=== PATIENT | male | born 1980 | race African-American/Black ===

== ENCOUNTER 2020-02-28 10:07 | Emergency (ER) | payer OTHER ==
[2020-02-28 14:12] LABS: BILIRUBIN NEGATIVE (NEGATIVE); BLOOD NEGATIVE Ery/uL (NEGATIVE); CLARITY CLEAR (CLEAR); COLOR YELLOW (YELLOW); GLUCOSE (U) NORMAL (NORMAL); LEUKOCYTES NEGATIVE Leu/uL (NEGATIVE); NITRITE NEGATIVE (NEGATIVE); PROTEIN NEGATIVE (NEGATIVE); UROBILINOGEN 0.2 mg/dL (0.2-1.0); pH 6.5 (5.0-9.0)
[2020-02-28 14:17] LABS: AMPHETAMINES NEGATIVE (NEGATIVE); BARBITURATES NEGATIVE (NEGATIVE); ECSTASY (MDMA) NEGATIVE (NEGATIVE); MARIJUANA (THC) NEGATIVE (NEGATIVE); METHADONE NEGATIVE (NEGATIVE); OPIATES NEGATIVE (NEGATIVE); OXYCODONE NEGATIVE (NEGATIVE)
[2020-02-28 14:25] LABS: BASOPHIL 0.3 % (0-2); EOSINOPHIL 0.5 % (0-5); HCT 41.7 % (42.0-52.0); HGB 14.1 g/dl (13.2-18.0); MCH 31.3 pg (25.0-31.0); MCHC 33.8 g/dL (32.0-36.0); MCV 92.7 fL (78.0-100.0); MONOCYTE 5.4 % (0-12); MPV 9.9 fL (6.0-9.5); NEUTROPHIL 72.6 % (41-80); NRBC 0; PLT 272 K/uL (150-400); RDW 13.1 % (11.5-14.0); WBC 9.4 K/uL (4.0-10.5)
[2020-02-28 14:41] LABS: ALBUMIN 3.5 g/dL (3.4-5.0); ALKALINE PHOSHATASE 93 U/L (46-116); ALT 15 U/L (16-63); AST 21 U/L (15-37); BILIRUBIN - TOTAL 0.7 mg/dL (0.2-1.0); BUN 9 mg/dL (7-18); BUN/CREAT RATIO (CALC) 7.4 RATIO; CHLORIDE 109 mmol/L (98-107); CO2 (BICARBONATE) 25 mmol/L (21-32); CREATININE 1.21 mg/dL (0.67-1.17); GLOBULIN (CALCULATION) 4.2 g/dL; GLUCOSE 84 mg/dL (74-106); POTASSIUM 4.4 mmol/L (3.5-5.1); TOTAL PROTEIN 7.7 g/dL (6.4-8.2)
== END 2020-02-28 21:17 | disposition other institution (70) ==
LOC: FER 10:07
PROVIDERS: Emergency Medicine
DX: F19.129 Other psychoactive substance abuse with intoxication, unspecified (principal); F29 Unspecified psychosis not due to a substance or known physiological condition; F17.210 Nicotine dependence, cigarettes, uncomplicated; Z20.822 Contact with and (suspected) exposure to COVID-19
CPT/HCPCS: 36415; 73560; 80053; 80305; 81003; 85025; G0480; J3486; U0002

== ENCOUNTER 2021-04-21 22:54 | Emergency (ER) | payer OTHER ==
[2021-04-22 00:59] LABS: BASOPHIL 0.5 % (0-2); EOSINOPHIL 0.3 % (0-5); HCT 46.4 % (42.0-52.0); HGB 15.8 g/dl (13.2-18.0); LYMPHOCYTE 17.3 % (15-48); MCH 31.2 pg (25.0-31.0); MCHC 34.1 g/dL (32.0-36.0); MCV 91.7 fL (78.0-100.0); MONOCYTE 4.1 % (0-12); MPV 9.6 fL (6.0-9.5); NEUTROPHIL 77.5 % (41-80); NRBC 0; PLT 364 K/uL (150-400); RBC 5.06 M/uL (4.70-6.00); WBC 7.8 K/uL (4.0-10.5)
[2021-04-22 01:14] LABS: ALBUMIN 3.8 g/dL (3.4-5.0); BILIRUBIN - TOTAL 1.4 mg/dL (0.2-1.0); BUN/CREAT RATIO (CALC) 8.9 RATIO; CREATININE 1.46 mg/dL (0.67-1.17); POTASSIUM 3.5 mmol/L (3.5-5.1); TOTAL PROTEIN 7.8 g/dL (6.4-8.2)
[2021-04-22] MEDS ORDERED: ONDANSETRON ODT4 MG PO (03:52)
== END 2021-04-22 04:00 | disposition home or self-care (01) ==
LOC: FER 22:54
PROVIDERS: Emergency Medicine
DX: K59.00 Constipation, unspecified (principal); F17.200 Nicotine dependence, unspecified, uncomplicated
CPT/HCPCS: 36415; 80053; 83690; 85025; J1885; J2405; J7030

== ENCOUNTER → 2021-10-10 | Day surgery (SDC) | payer OTHER ==
[~2021-10-10] VITALS: Ht 177.8 cm; Wt 86.2 kg
[~2021-10-10] MED LIST: MOTRIN600 MG PO; ONDANSETRON ODT4 MG PO; ONDANSETRON ODT8 MG PO
[2021-10-10 07:35] LABS: BASOPHIL 0.8 % (0-2); EOSINOPHIL 3.1 % (0-5); HCT 40.3 % (42.0-52.0); HGB 14.1 g/dl (13.2-18.0); LYMPHOCYTE 47.2 % (15-48); MCH 31.4 pg (25.0-31.0); MCV 89.8 fL (78.0-100.0); MONOCYTE 6.9 % (0-12); MPV 9.7 fL (6.0-9.5); NEUTROPHIL 41.8 % (41-80); NRBC 0; PLT 262 K/uL (150-400); RBC 4.49 M/uL (4.70-6.00); RDW 12.1 % (11.5-14.0); WBC 6.5 K/uL (4.0-10.5)
[2021-10-10 10:24] LABS: AMPHETAMINES NEGATIVE (NEGATIVE); BARBITURATES NEGATIVE (NEGATIVE); ECSTASY (MDMA) NEGATIVE (NEGATIVE); METHADONE NEGATIVE (NEGATIVE); OPIATES NEGATIVE (NEGATIVE); OXYCODONE NEGATIVE (NEGATIVE)
[2021-10-10 10:26] LABS: MARIJUANA (THC) POSITIVE (NEGATIVE)
== END | disposition home or self-care (01) ==
LOC: FAS 06:58
PROVIDERS: Oral & Maxillofacial Surgery
DX: K02.9 Dental caries, unspecified (principal); F41.9 Anxiety disorder, unspecified; F17.210 Nicotine dependence, cigarettes, uncomplicated
CPT/HCPCS: D7140; D7210; D7310; 36415; 80305; 85025; J1100; J2250; J7120